=== PATIENT | female | born 1950 | race Caucasian/White ===

== ENCOUNTER 2019-10-23 15:13 | Outpatient (CLI) | payer MEDICARE, SELFPAY ==
--- NOTE | ~2019-10-23 | MM_ITS ---
EXAMINATION: MM screening stanley BI w dima HISTORY: Screening TECHNIQUE: Craniocaudal and mediolateral oblique 3-D tomosynthesis images were obtained and synthetic 2-D images were generated. CAD analysis was submitted and interpreted. COMPARISON: Comparison to multiple prior studies sequentially, with oldest reviewed study dated 06/2017. BREAST PARENCHYMAL COMPOSITION: There are scattered areas of fibroglandular density. FINDINGS: There is no evidence of suspicious mass, calcification, or architectural distortion to sugg est malignancy in either breast. There has been no suspicious interval change. IMPRESSION: 1. No mammographic evidence of malignancy. 2. Recommend routine screening mammography in one year. BI-RADS Category 1: Negative Reviewed, dictated and finalized at location A.
== END 2019-10-23 15:14 | disposition home or self-care (01) ==
PROVIDERS: PCP Family Medicine; Visit Provider Family Medicine
DX: Z12.31 Encounter for screening mammogram for malignant neoplasm of breast (principal)
CPT/HCPCS: 77063; 77067

== ENCOUNTER 2020-07-15 08:15 | Outpatient (CLI) | payer MEDICARE, SELFPAY ==
--- NOTE | ~2020-07-15 | US_ITS ---
EXAMINATION: US abdomen complete DATE: 07/15/2020 09:22 INDICATION: Elevated liver function tests TECHNIQUE: Multiple grayscale and Doppler ultrasound images of the abdomen were obtained. COMPARISON: None available FINDINGS: The head, body, and tail of the pancreas are normal. The liver demonstrates increased echog enicity, heterogenous echotexture, and decreased through transmission. No surface nodularity. Normal hepatopetal flow in the main portal vein. The gallbladder is normal with no abnormal wall thickening, pericholecystic fluid or stones. The normal common bile duct measures 3 mm. There was no sonographic Arredondo sign. The visualized portions of the aorta and inferior vena cava are normal. The right kidney measures 10.7 x 3.3 x 5.4 cm. The left kidney measures 9.3 x 5.0 x 4.2 cm. The kidne ys demonstrate normal parenchymal echogenicity. There is no hydronephrosis. The spleen is normal in a ppearance and measures 10.0 cm. IMPRESSION: 1. Diffuse hepatic steatosis. Reviewed, dictated and finalized at location B.
[2020-07-15 09:36] LABS: Alanine Aminotransferase 47 U/L (4-35); Cholesterol 92 mg/dL (0-200); Creatine Kinase 39 U/L (30-135); HDL Direct 37 mg/dL; Triglycerides 75 mg/dL (<150)
[2020-07-15 09:47] LABS: LDL Cholesterol Direct 42 mg/dL
[2020-07-15 10:28] LABS: Hepatitis B Surface Antigen Negative (Negative)
[2020-07-15 10:34] LABS: HAV RESULT Negative (Negative); Hepatitis B Core IgM Result Negative (Negative)
[2020-07-15 10:46] LABS: Hepatitis C Virus Antibody Negative (Negative)
[2020-07-20 12:51] LABS: GGT 25 U/L (3-65)
== END 2020-07-15 08:16 | disposition home or self-care (01) ==
LOC: ANHIMG 08:22
PROVIDERS: Nurse Practitioner Family; PCP Family Medicine; Visit Provider Physician Assistant Medical
DX: R74.01 Elevation of levels of liver transaminase levels (principal); E78.2 Mixed hyperlipidemia; K76.0 Fatty (change of) liver, not elsewhere classified
CPT/HCPCS: 36415; 76700; 80061; 80074; 82550; 82977; 84460

== ENCOUNTER 2020-08-24 08:18 | Outpatient (CLI) | payer MEDICARE, SELFPAY ==
[2020-08-24 08:49] LABS: Alanine Aminotransferase 30 U/L (4-35); Cholesterol 117 mg/dL (0-200); Creatine Kinase 33 U/L (30-135); HDL Direct 43 mg/dL; Triglycerides 71 mg/dL (<150)
[2020-08-24 09:00] LABS: LDL Cholesterol Direct 48 mg/dL
== END 2020-08-24 08:19 | disposition home or self-care (01) ==
LOC: ANHLAB 08:22
PROVIDERS: PCP Family Medicine; Visit Provider Nurse Practitioner Family
DX: E78.2 Mixed hyperlipidemia (principal)
CPT/HCPCS: 36415; 80061; 82550; 84460

== ENCOUNTER 2020-10-24 09:17 | Outpatient (CLI) | payer MEDICARE, SELFPAY ==
--- NOTE | ~2020-10-24 | MM_ITS ---
EXAMINATION: MM screening stanley BI w dima HISTORY: Screening mammogram TECHNIQUE: Craniocaudal and mediolateral oblique 3-D tomosynthesis images were obtained and synthetic 2-D images were generated. CAD analysis was submitted and interpreted. COMPARISON: 10/23/2019 bilateral digital screening mammogram 08/14/2018 bilateral diagnostic digital mammogram 07/28/2018, 06/2017, bilateral digital screening mammogram examination BREAST PARENCHYMAL COMPOSITION: There are scattered areas of fibroglandular density. FINDINGS: There is a biopsy marker on the right in the upper outer quadrant; history of prior benign right breast biopsy. Stable mild fibroglandular asymmetry. Scattered bilateral benign calcifications. There is no evidence of suspicious mass, calcification, or architectural distortion to suggest malignancy in either breast. There has been no suspicious interv al change. IMPRESSION: 1. No mammographic evidence of malignancy. 2. Recommend routine screening mammography in one year. BI-RADS Category 2: Benign finding(s). Reviewed, dictated and finalized at location A.
== END 2020-10-24 09:18 | disposition home or self-care (01) ==
LOC: ANHIMG 09:21
PROVIDERS: PCP Family Medicine; Visit Provider Family Medicine
DX: Z12.31 Encounter for screening mammogram for malignant neoplasm of breast (principal)
CPT/HCPCS: 77063; 77067

== ENCOUNTER 2021-09-19 08:24 | Outpatient (CLI) | payer MEDICARE, SELFPAY ==
[2021-09-19 09:03] LABS: Alanine Aminotransferase 39 U/L (6-35); Albumin Level 4.3 g/dL (3.5-5.1); Alkaline Phosphatase 91 U/L (38-126); Anion Gap 8 mmol/L (8-16); Aspartate Amino Transferase 34 U/L (14-36); Bilirubin,Total 0.5 mg/dL (0.2-1.3); Blood Urea Nitrogen 17 mg/dL (7-17); Calcium 9.4 mg/dL (8.4-10.2); Carbon Dioxide 26 mmol/L (22-30); Chloride 104 mmol/L (98-107); Cholesterol 183 mg/dL (0-200); Estimated Glomerular Filt Rate > 60; Glucose 138 mg/dL (65-110); HDL Direct 49 mg/dL; Sodium 138 mmol/L (137-145); Triglycerides 77 mg/dL (<150)
[2021-09-19 09:15] LABS: LDL Cholesterol Direct 101 mg/dL
[2021-09-19 09:16] LABS: Hematocrit 41.4 % (37.0-47.0); Hemoglobin 13.2 g/dL (12.0-15.0); Mean Corpuscular HGB Conc 31.9 g/dl (32-36); Mean Corpuscular Hemoglobin 28.8 pg (26-34); Mean Corpuscular Volume 90.2 fl (80-100); Platelet Count Result 295 k/mm3 (150-375); Red Blood Count 4.59 M/mm3 (4.2-5.4); Red Cell Distribution Width 13.7 % (11.5-14.5); White Blood Count 9.3 K/mm3 (4.5-10.0)
[2021-09-19 09:20] LABS: MALB Creatinine Ratio 7.7 mg/g (0-30); Microalbumin Urine Random 9.4 mg/L (0-16.7)
[2021-09-19 09:34] LABS: Thyroid Stimulating Hormone 0.758 uIU/mL (0.465-4.680)
== END 2021-09-19 08:25 | disposition home or self-care (01) ==
PROVIDERS: PCP Family Medicine; Visit Provider Nurse Practitioner Family
DX: E78.5 Hyperlipidemia, unspecified (principal); E11.9 Type 2 diabetes mellitus without complications; Z13.29 Encounter for screening for other suspected endocrine disorder; I10 Essential (primary) hypertension
CPT/HCPCS: 36415; 80053; 80061; 82043; 84443; 85027

== ENCOUNTER 2021-12-20 13:10 | Outpatient (CLI) | payer MEDICARE, SELFPAY ==
[2021-12-20 14:40] LABS: Free T4 Free Thyroxine 1.18 ng/mL (0.78-2.19)
[2021-12-20 14:51] LABS: Thyroid Stimulating Hormone 0.566 uIU/mL (0.465-4.680)
== END 2021-12-20 13:11 | disposition home or self-care (01) ==
LOC: ANHLAB 13:12
PROVIDERS: PCP Family Medicine; Visit Provider Nurse Practitioner Family
DX: L65.9 Nonscarring hair loss, unspecified (principal)
CPT/HCPCS: 36415; 84439; 84443

== ENCOUNTER 2022-02-06 14:34 | Outpatient (CLI) | payer MEDICARE, SELFPAY ==
--- NOTE | ~2022-02-06 | DEXA_ITS ---
Bone Density Report Name: ERIN MCCLOUD Age: 71 Sex: Female Ethnicity: White Date of : 1950 Indication: postmenopausal; screening for osteoporosis; height loss; hysterectomy; Referring Provider: DYLAN AGUILAR Study: Bone densitometry was performed. Exam Date: February 06, 2022 Accession number: [id number] Bone Density: Region BMD T-score Z-score Classification AP Spine(L1-L4) 0.900 -1.3 0.8 Osteopenia Femoral Neck (Left) 0.615 -2.1 -0.3 Osteopenia Total Hip (Left) 0.775 -1.4 0.1 Osteopenia Femoral Neck (Right) 0.667 -1.6 0.1 Osteopenia Total Hip (Right) 0.768 -1.4 0.1 Osteopenia Total Hip Mean 0.771 -1.4 0.1 Osteopenia World Health Organization criteria for BMD impression classify patients as: Normal (T-score at or above -1.0), Osteopenia (T-score between -1.0 and -2.5), or Osteoporosis (T-score at or below -2.5). 10-year Fracture Risk(1): Major Osteoporotic Fracture 12% Hip Fracture 2.3% Reported Risk Factors: [place] (), Neck BMD=0.615, BMI=24.4 (1) FRAX(R) Version 3.08. Fracture probability calculated for an untreated patient. Fracture probability may be lower if the patient has received treatment. Clinical Information Provided by Patient: Has the following medical conditions: Hysterectomy Patient maximum height was 63 Menopause Age: 56 Drinks caffeinated beverages Onset of menses at age 14 Number of children 1 Impression: The patient has low bone mass, based on the Left Femoral Neck T-score. The patient has an estimated ten-year risk of hip fracture of 2.3% and an estimated ten-year risk of major fracture of 12%, based on the WHO FRAX algorithm. Discussion: BONE DENSITY IS LOW AT ONE OR MORE SKELETAL SITES. This patient's lowest T-score is low at one or more skeletal sites. It meets the World Health Organization's (WHO) criteria for ?low bone mass? (T-score between -1.0 and -2.5). The patient's 10-year risk of fracture as calculated by FRAX is less than the threshold where pharmacological therapy is recommended by the National Osteoporosis Foundation (NOF). However, all treatment decisions require clinical judgment and consideration of individual patient factors, including patient preferences, comorbidities, previous drug use, risk factors not captured in the FRAX model (e.g., frailty, falls, vitamin D deficiency, increased bone turnover, interval significant decline in bone density) and possible under or overestimation of fracture risk by FRAX. The patient should follow a healthful lifestyle (good nutrition with adequate calcium and vitamin D, and appropriate weight-bearing exercise). Follow-Up: Consider repeating this study in 2 to 3 years to reassess this patient's status, or sooner if there is some new clinical indication. Reported by: Ave
--- NOTE | ~2022-02-06 | MM_ITS ---
EXAMINATION: MM screening stanley BI w dima HISTORY: Screening mammogram TECHNIQUE: Craniocaudal and mediolateral oblique 3-D tomosynthesis images were obtained and synthetic 2-D images were generated. CAD analysis was submitted and interpreted. COMPARISON: 10/18/2020, 10/19/2019 bilateral screening mammogram examinations BREAST PARENCHYMAL COMPOSITION: There are scattered areas of fibroglandular density. FINDINGS: Scattered bilateral benign calcifications. There is a biopsy marker on the right; history o f prior benign right breast biopsy. There is no evidence of suspicious mass, calcification, or luma ectural distortion to suggest malignancy in either breast. There has been no suspicious interval sow ge. IMPRESSION: 1. No mammographic evidence of malignancy. 2. Recommend routine screening mammography in one year. BI-RADS Category 2: Benign finding(s). Reviewed, dictated and finalized at location A. 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
== END 2022-02-06 14:35 | disposition home or self-care (01) ==
PROVIDERS: PCP Family Medicine; Visit Provider Nurse Practitioner Family
DX: Z12.31 Encounter for screening mammogram for malignant neoplasm of breast (principal); Z78.0 Asymptomatic menopausal state; M85.89 Other specified disorders of bone density and structure, multiple sites
CPT/HCPCS: 77063; 77067; 77080

== ENCOUNTER 2023-02-28 07:47 | Outpatient (CLI) | payer MEDICARE, SELFPAY ==
--- NOTE | ~2023-02-28 | MM_ITS ---
EXAMINATION: MM screening stanley BI w dima HISTORY: Screening mammogram TECHNIQUE: Craniocaudal and mediolateral oblique 3-D tomosynthesis images were obtained and synthetic 2-D images were generated. CAD analysis was submitted and interpreted. COMPARISON: 02/06/2022, 10/24/2020, 10/19/2019 bilateral screening mammogram examinations BREAST PARENCHYMAL COMPOSITION: There are scattered areas of fibroglandular density. FINDINGS: Biopsy marker is again noted on the right to prior benign right breast biopsy. Left pacemaker battery packs noted overlying the left axillary tail area. Scattered bilateral benign calcifications are again noted. There is no evidence of suspicious mass, c alcification, or architectural distortion to suggest malignancy in either breast. There has been no s uspicious interval change. IMPRESSION: 1. No mammographic evidence of malignancy. 2. Recommend routine screening mammography in one year. BI-RADS Category 2: Benign finding(s). Reviewed, dictated and finalized at location A. 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
== END 2023-02-28 07:48 | disposition home or self-care (01) ==
LOC: ANHIMG 07:51
PROVIDERS: PCP Family Medicine; Visit Provider Nurse Practitioner Family
DX: Z12.31 Encounter for screening mammogram for malignant neoplasm of breast (principal)
CPT/HCPCS: 77063; 77067

== ENCOUNTER 2023-03-30 13:50 | Outpatient (CLI) | payer MEDICARE, SELFPAY ==
[2023-03-30 14:15] LABS: Anion Gap 11 mmol/L (8-16); Blood Urea Nitrogen 17 mg/dL (7-17); Calcium 10.1 mg/dL (8.4-10.2); Carbon Dioxide 29 mmol/L (22-30); Chloride 101 mmol/L (98-107); Estimated Glomerular Filt Rate 55; Glucose 201 mg/dL (65-110); Potassium 3.6 mmol/L (3.4-5.0); Sodium 141 mmol/L (137-145)
== END 2023-03-30 13:51 | disposition home or self-care (01) ==
LOC: ANHLAB 13:52
PROVIDERS: PCP Family Medicine; Visit Provider Internal Medicine Cardiovascular Disease
DX: I10 Essential (primary) hypertension (principal)
CPT/HCPCS: 36415; 80048

== ENCOUNTER 2023-06-15 09:14 | Outpatient (CLI) | payer MEDICARE, SELFPAY ==
[2023-06-15 10:04] LABS: Basophils Percent Auto 0.6 % (0.2-1.2); Eosinophils Absolute Auto 0.1 K/mm3 (0-0.3); Hematocrit 41.4 % (37.0-47.0); Hemoglobin 13.5 g/dL (12.0-15.0); Immature Granulocyte Absolute 0.02 K/mm3 (0.00-0.031); Immature Granulocyte Percent A 0.3 % (0-0.5); Lymphocytes Absolute Auto 1.96 K/mm3 (0.9-3.2); Mean Corpuscular HGB Conc 32.6 g/dl (32-36); Mean Corpuscular Hemoglobin 28.6 pg (26-34); Mean Corpuscular Volume 87.7 fl (80-100); Mean Platelet Volume 10.1 fl (7.4-10.4); Monocytes Absolute Auto 0.5 K/mm3 (0.1-0.6); Monocytes Percent Auto 7.6 % (2.6-8.5); Neutrophils Absolute Auto 4.3 K/mm3 (1.3-6.7); Neutrophils Percent Auto 61.5 % (45.5-73.1); Platelet Count Result 293 k/mm3 (150-375); Red Blood Count 4.72 M/mm3 (4.2-5.4); Red Cell Distribution Width 13.6 % (11.5-14.5)
[2023-06-15 10:14] LABS: Alanine Aminotransferase 48 U/L (6-35); Albumin Level 4.5 g/dL (3.5-5.1); Alkaline Phosphatase 74 U/L (38-126); Anion Gap 5 mmol/L (8-16); Aspartate Amino Transferase 42 U/L (14-36); Bilirubin,Total 0.8 mg/dL (0.2-1.3); Blood Urea Nitrogen 11 mg/dL (7-17); Calcium 9.8 mg/dL (8.4-10.2); Carbon Dioxide 31 mmol/L (22-30); Chloride 101 mmol/L (98-107); Cholesterol 161 mg/dL (0-200); Estimated Glomerular Filt Rate > 60; Glucose 145 mg/dL (65-110); HDL Direct 47 mg/dL; Potassium 3.5 mmol/L (3.4-5.0); Sodium 137 mmol/L (137-145); Triglycerides 83 mg/dL (<150)
[2023-06-15 10:25] LABS: LDL Cholesterol Direct 100 mg/dL
[2023-06-15 10:44] LABS: Thyroid Stimulating Hormone 0.889 uIU/mL (0.465-4.680)
[2023-06-15 11:58] LABS: Hemoglobin A1C 7.7 % (<5.7)
[2023-06-15 12:43] LABS: Creatinine Urine 104.2 mg/dL
[2023-06-15 12:47] LABS: MALB Creatinine Ratio 7.1 mg/g (0-30); Microalbumin Urine Random 7.4 mg/L (0-16.7)
== END 2023-06-15 09:15 | disposition home or self-care (01) ==
LOC: ANHLAB 09:17
PROVIDERS: PCP Family Medicine; Visit Provider Family Medicine
DX: E78.2 Mixed hyperlipidemia (principal); I10 Essential (primary) hypertension; E11.65 Type 2 diabetes mellitus with hyperglycemia; R74.01 Elevation of levels of liver transaminase levels; Z13.220 Encounter for screening for lipoid disorders
CPT/HCPCS: 36415; 80048; 80061; 80076; 82043; 83036; 84443; 85025

== ENCOUNTER 2023-09-27 08:55 | Outpatient (CLI) | payer MEDICARE, SELFPAY ==
[2023-09-27 10:02] LABS: Alanine Aminotransferase 23 U/L (6-35); Albumin Level 4.5 g/dL (3.5-5.1); Alkaline Phosphatase 76 U/L (38-126); Aspartate Amino Transferase 26 U/L (14-36); Bilirubin,Total 0.7 mg/dL (0.2-1.3)
[2023-09-27 10:08] LABS: Hemoglobin A1C 6.9 % (<5.7)
== END 2023-09-27 08:56 | disposition home or self-care (01) ==
PROVIDERS: PCP Family Medicine; Visit Provider Family Medicine
DX: K76.0 Fatty (change of) liver, not elsewhere classified (principal); E11.65 Type 2 diabetes mellitus with hyperglycemia
CPT/HCPCS: 36415; 80076; 83036

== ENCOUNTER 2024-06-16 12:35 | Outpatient (CLI) | payer MEDICARE, SELFPAY ==
[2024-06-16 13:30] LABS: Basophils Percent Auto 0.6 % (0.2-1.2); Eosinophils Absolute Auto 0.1 K/mm3 (0-0.3); Eosinophils Percent Auto 2.2 % (0-4.4); Hemoglobin 14.3 g/dL (12.0-15.0); Immature Granulocyte Absolute 0.02 K/mm3 (0.00-0.031); Immature Granulocyte Percent A 0.3 % (0-0.5); Lymphocytes Absolute Auto 1.97 K/mm3 (0.9-3.2); Lymphocytes Percent Auto 30.9 % (18.3-44.2); Mean Corpuscular HGB Conc 32.5 g/dl (32-36); Mean Corpuscular Hemoglobin 28.8 pg (26-34); Mean Corpuscular Volume 88.5 fl (80-100); Mean Platelet Volume 10.5 fl (7.4-10.4); Monocytes Absolute Auto 0.5 K/mm3 (0.1-0.6); Monocytes Percent Auto 7.8 % (2.6-8.5); Neutrophils Absolute Auto 3.7 K/mm3 (1.3-6.7); Neutrophils Percent Auto 58.2 % (45.5-73.1); Platelet Count Result 265 k/mm3 (150-375); Red Blood Count 4.97 M/mm3 (4.2-5.4); White Blood Count 6.4 K/mm3 (4.5-10.0)
--- OUTSIDE RECORDS SUMMARY | 2024-06-16 13:52 | XMS_ITS | Clinical Summary ---
Author Organization [facility] Address [address] [place] [address] Care Team Providers Care Pilates Coordinator Name Role Phone Johny Duval MD Primary Care Provider [phone] Daisha Mac MD Unavailable [phone] [facility],non-owned Affiliates and Associated Physician Practices is amultiple site organization consisting of ambulatory clinics and hospital sitesin [place], [place], [place] and [place]. This disclosure is being madepursuant to the Care Everywhere program and may not contain all information available regarding this patient. Last updated 17.[facility] Allergies Active Allergy Reactions Criticality Noted Date Comments Rosuvastatin Myalgias 09/16/2020 Medications * Be aware that medications may not be up to date on this document. Alwaysverify current medications with the patient. Medication Sig Dispensed Refills Start Date End Date Status ezetimibe (ZETIA) 10 MG tablet Take 1 (one) tablet by mouth once daily 08/23/2020 Active Blood Glucose Monitoring Suppl (ACCU-CHEK ELEUTERIO PLUS) w/Device KIT USE 1 STRIP TO CHECK GLUCOSE TWICE DAILY 03/16/2020 Active indapamide (LOZOL) 2.5 MG tablet Take 2 (two) tablets by mouth once daily Active metFORMIN ER 24hr (GLUCOPHAGE XR) 500 MG tablet 4 (four) tablets at bedtime 06/07/2020 Active omeprazole (PRILOSEC) 20 MG capsule Take 1 (one) capsule by mouth as needed Active benazepril (Lotensin) 40 MG tablet Take 1 (one) tablet by mouth once daily Active dapagliflozin propanediol (Farxiga) 10 MG tablet Take 1 (one) tablet by mouth every morning Active vitamin D3 (Cholecalciferol) 25 MCG (1000 UNITS) tablet Take 1 (one) tablet by mouth once daily Active Active Problems Problem Noted Date Diagnosed Date Elevated liver function tests 09/16/2020 NAFLD (nonalcoholic fatty liver disease) 021 Overview (08/20/2023): 02/28/21 Fibroscan CAP 316, LSM 7.7 kPa 08/20/23 Fibroscan CAP 324, LSM 7.1 kPa Complete heart block 07/04/2018 Benign essential HTN 07/02/2018 Hypercholesteremia 07/02/2018 Type 2 diabetes mellitus wit hout complication, without long-term current use of insulin 07/02/2018 Pacemaker 11/26/2017 Overview (09/16/2020): Biotronik Dual Pacemaker. Dx; CHB, Syncope. DOI 11/21/2017. Biotronik remote monitoring, office pacer checks Q1 year. Immunizations Name Administration Dates Next Due Covid Moderna primary monova lent 12+ yr 0.5mL 02/07/2021,06/20/2020,05/18/2020 INFLUENZA VACCINE 12/30/2020,12/02/2019 Zoster Hzv Vacc Recombinant Inj Im 01/17/2020, Family History Medical History Relation Name Comments CAD (Coronary Artery Disease) Father Cancer - Lung Father Cancer - Uterine Mother CVA Sister 1 Relation Name Status Comments Father Mother Sister 1 Alive Sister 2 Alive Social History Tobacco Use Types Packs/Day Years Used Date Smoking Tobacco: Never Smokeless Tobacco: Never Alcohol Use Standard Drinks/Week Comments Never 0 (1 standard drink = 0.6 oz pur e alcohol) Sex and Gender Information Value Date Recorded Sex Assigned at Not on file Gender Identity Not on file Sexual Orientation Not on file Last Filed Vital Signs Vital Sign Reading Time Taken Comments Blood Pressure 133/78 08/20/2023 2:11 PM CDT Pulse 77 08/20/2023 2:11 PM CDT Temperature 37.1 C (98.7 F) 02/28/2021 9:38 AM NUCLEAR FUEL PROCESSING TECHNICIAN Respiratory Rate - - Oxygen Saturation 100% 08/20/2023 2:11 PM CDT Inhaled Oxygen Concentration - - Weight 55.7 kg (122 lb 12.8 oz) 08/20/2023 2:11 PM CDT Height 154.9 cm (5' 1 ) 08/20/2023 2:11 PM CDT Body Mass Index 23.2 08/20/2023 2:11 PM CDT Plan of Treatment Health Maintenance Due Date Last Done Comments BONE DENSITY TESTING 1950 COLOGUARD (AGES 45-75) - COL ON CA SCREENING 1950 COLON MONITORING 1950 COLONOSCOPY - COLON CA SCREENING 1950 CT COLONOGRAPHY - COLON CA SCREENING 1950 Colorectal Cancer Screening 1950 FIT - COLON CA SCREENING 1950 FLEX SIG - COLON CA SCREENING 1950 MAMMOGRAM 1950 HEPATITIS C SCREENING 05/13/1970 DTAP/TDAP/TD VACCINES (1 - Tdap) 1971 PNEUMOCOCCAL VACCINE 50+ (1 of 2 - PCV) 1971 DIABETES-STATIN 1992 Respiratory Syncytial Virus (RSV) Vaccine Pt: or over 60 yrs (1 - Risk 60-74 years 1-dose series) 2012 DIABETES RETINOPATHY SCREENING 09/16/2020 DIABETES-FOOT EXAM WITH MONOFILAMENT 09/16/2020 DIABETES-HGB A1C 09/16/2020 COVID-19 VACCINE (4 - 2023-2 5 season) 2023 02/07/2021, 06/20/2020, 05/18/2020 INFLUENZA VACCINE (#1) 2023 , 12/02/2019 DEPRESSION SCREENING 04/01/2024 DIABETES - URINE PROTEIN SCREENING 04/01/2024 MEDICARE AWV CALENDAR YEAR 2024 DIABETES-SERUM CREATININE 08/19/20242023, 09/19/2020 ZOSTER VACCINE Completed 01/17/2020, 10/17/2019 HEPATITIS B VACCINE Aged Out No longe r eligible based on patient's age to complete this topic HIB VACCINE Aged Out No longer eligi ble based on patient's age to complete this topic HPV VACCINE Aged Out No longer eligi ble based on patient's age to complete this topic MENINGOCOCCAL (Group B) VACCINE SHARED DECISION-MAKING Aged Out No longer eligible based on patient's age to complete this topic MENINGOCOCCAL GROUPS A/C/Y/W VACCINE Aged Out No longer eligible b ased on patient's age to complete this topic Goals Goal Patient Goal Type Associated Problems Recent Progress Patient-Stated? Author Medication Management General On track( 9:40 AM NUCLEAR FUEL PROCESSING TECHNICIAN) Leanna Henriquez, RN Note: Expected end date: ongoing Interventions: Take all medications as prescribed Let your doctor know right away about any changes in your medications Make sure to request a refill of your medication at least one week prior to your last dose Safety General On track( 9:40 AM NUCLEAR FUEL PROCESSING TECHNICIAN) Leanna Henriquez, ABIMBOLA Note: Expected end date: ongoing Interventions: Your nurse will assess your risk for falls/injury each visit Make sure appropriate safety devices are available and within reach Be aware of medications that could predispose you to falling Wear non-skid/rubber sole footwear Wear glasses/hearing aid Use some light at night in your room Procedures Procedure Name Priority Date/Time Associated Diagnosis Comments COMPREHENSIVE METABOLIC PANEL Routine 08/20/2023 1:51 PM CDT NAFLD (nonalcoholic fatty liver disease) from Last 3 Months or Most Recently Relevant to Health Maintenance Results * (ABNORMAL) COMPREHENSIVE METABOLIC PANEL (08/20/2023 1:51 PM CDT) BUN 22 7 - 26 mg/dL 08/20/2023 2:56 PM [facility] Creatinine 0.78 0.56 - 0.96 mg/dL 08/20/2023 2:56 PM [facility] Sodium 139 136 - 145 mmol/L 08/20/2023 2:56 PM [facility] Potassium 3.2(L) 3.5 - 4.5 mmol/L 08/20/2023 2:56 PM [facility] Chloride 101 98 - 107 mmol/L 08/20/2023 2:56 PM [facility] CO2 27 22 - 29 mmol/L 08/20/2023 2:[address] [facility] Glucose 100 70 - 115 mg/dL 08/20/2023 2:56 PM [facility] Calcium 10.3(H) 8.4 - 10.2 mg/dL 08/20/2023 2:56 PM [facility] Protein Total 7.6 6.0 - 8.3 g/dL 08/20/2023 2:56 PM [facility] Albumin 4.0 3.4 - 5.0 g/dL 08/20/2023 2:56 PM [facility] Bilirubin Total 0.5 0.2 - 1.2 mg/dL 08/20/2023 2:56 PM [facility] Alkaline Phosphatase 76 40 - 150 U/L 08/20/2023 2:56 PM [facility] ALT 33 5 - 55 U/L 08/20/2023 2:56 PM [facility] AST 31 5 - 34 U/L 08/20/2023 2:56 PM [facility] Anion Gap 11 6 - 16 08/20/2023 2:56 PM [facility] BUN/Creatinine Ratio 28(H) 7 - 23 08/20/2023 2:56 PM [facility] Osmolality Calculated 291 275 - 295 mOsm/kg 08/20/2023 2:56 PM [facility] Albumin/Globulin Ratio 1.1 1.1 - 2.3 08/20/2023 2:56 PM [facility] eGFR by CKD-EPI 81(L) >=90 mL/min/1.7 3 m2 08/20/2023 2:56 PM [facility] Blood BLOOD SPECIMEN / Unknown Lab Venipuncture / Unknown 08/20/2023 1:51 PM CDT 08/20/2023 2:24 PM [facility] [place] Janusz Urias MD LAB - CHEMISTRY TIGIST ELLISON [facility] Organization Address City/State/ZIP Co de Phone Number [facility] [address] [place] [address], [facility] [phone] from Last 3 Months or Most Recently Relevant to Health Maintenance Care Teams Pilates Coordinator Relationship Specialty Start Date End Date Johny Duval MD [address] [place] [address] PCP - General 08/23/20 Daisha Mac MD [address] [place] [address] Cardiovascular Disease 09/16/20
--- OUTSIDE RECORDS SUMMARY | 2024-06-16 13:52 | XMS_ITS | Referral Summary ---
Author Organization [facility] [address] Address [address] [place] [address] Care Team Providers Care Trash Hauler Name Role Phone Johny Duval MD Primary Care Provider [phone] Encounters Date Type Department Care Team Description 05/26/2024 Orders Only [facility] Cardiology [address] [place] [address] [place] [phone] Silvino Romero MD Complete heart block (HCC) (Primary Dx); Pacemaker 05/26/2024 8:00 AM MARINA DRY DOCK MANAGER Ancillary Procedure [facility] Cardiology [address] [place] [address] [place] [phone] Pacemaker [Z95.0] (Primary Dx); CHB (complete heart block) (HCC); SSS (sick sinus syndrome) (HCC) from Last 3 Months Allergies Active Allergy Reactions Criticality Noted Date Comments Rosuvastatin Muscle pain Medium 09/16/2020 Medications metFORMIN (GLUCOPHAGE) 500 mg tablet Take 4 tablets (2,000 mg total) by mouth nightly Active omeprazole (PriLOSEC) 20 mg capsule Take 1 capsule (20 mg total) by mouth daily as needed Active ezetimibe (ZETIA) 10 mg tablet Take 1 tablet (10 mg total) by mouth daily Active benazepriL (LOTENSIN) 40 mg tablet Take 1 tablet (40 mg total) by mouth daily 3 Active docosahexaenoic acid-epa 120-180 mg capsule Take by mouth Activ e indapamide (LOZOL) 2.5 mg tablet Take 2 tablets (5 mg total) by mouth daily 60 tablet 11 4 Active dapagliflozin propanediol (FARXIGA) 10 mg tablet Take 1 tablet (10 mg total) by mouth reactor kettle operator before breakfast Active cholecalciferol, vitamin D3, 1,000 unit tablet,chewable Take by mouth Active Lactobacillus rhamnosus GG (CULTURELLE) 10 billion cell capsule Take 1 capsule by mouth daily Active Active Problems Problem Noted Date Diagnosed Date Complete heart block 07/04/2018 Essential hypertension 07/02/2018 Hyperlipidemia associated with type 2 diabetes m ellitus 07/02/2018 Type 2 diabetes mellitus wit hout complication, without long-term current use of insulin 07/02/2018 Pacemaker 11/26/2017 Overview (11/26/2017): Biotronik Dual Pacemaker. Dx; CHB, Syncope. DOI 11/21/2017. [employer] Battles remote monitoring, office pacer checks Q1 year. Resolved Problems Problem Noted Date Diagnosed Date Resolved Date Hypertension associated with diabetes 10/05/2019 11/08/2021 Social History Tobacco Use Types Packs/Day Years Used Date Smoking Tobacco: Never Smokeless Tobacco: Never Tobacco Cessation:Counseling Given: Not Answered Comments Unknown Sex and Gender Information Value Date Recorded Sex Assigned at Not on file Legal Sex Female 12:52 PM CDT Gender Identity Female 10/02/2019 1:46 PM CDT Sexual Orientation Not on file Last Filed Vital Signs Vital Sign Reading Time Taken Comments Blood Pressure 146/76 11/25/2023 9:55 AM CDT Pulse 84 11/25/2023 9:55 AM CDT Temperature - - Respiratory Rate 16 11/25/2023 9:55 AM CDT Oxygen Saturation 97% 11/12/2022 10:10 AM CDT Inhaled Oxygen Concentration - - Weight 54.9 kg (121 lb) 11/25/2023 9:55 AM CDT Height 154.9 cm (5' 1 ) 11/25/2023 9:55 AM CDT Body Mass Index 22.86 11/25/2023 9:55 AM CDT Plan of Treatment Not on file Medical Devices Implanted Type Area Java Programmer Analyst Device Identifier Shelf Expiration Date Model / Serial / Lot Pacemaker-11/21 Implanted:10/31 (Quantity not on file) Pacemaker Chest [employer]ronik [employer] CHB, Syncope Procedures Procedure Name Priority Date/Time Associated Diagnosis Comments DEVICE CHECK - REMOTE Routine 05/26/2024 10:38 AM MARINA DRY DOCK MANAGER CHB (complete heart block) (HCC) SSS (sick sinus syndrome) (HCC) POCT LIPID PANEL Routine 11/25/2023 9:53 AM CDT Hyperlipidemia associated with type 2 diabetes mellitus (HCC) from Last 3 Months or Most Recently Relevant to Health Maintenance Results * DEVICE CHECK - REMOTE (05/26/2024 10:38 AM MARINA DRY DOCK MANAGER) Anatomical Region Laterality Modality Other Narrative 05/29/2024 9:32 AM MARINA DRY DOCK MANAGER Biotronik Dual Pacemaker. Dx; CHB, Syncope. DOI 11/21/2017. Biotronik remote monitoring, office pacer checks Q1 year. Routine DDD Pacemaker remote. Normal device function. Appropriate lead measurements noted. Battery function-45% remaining battery life to LITA. Presenting rhythm: AP-MECHANIC FOREMAN. AP-94%, MECHANIC FOREMAN-100%. No atrial high rate episodes noted. No ventricular high rate episodes noted. Meds; Indapamide, Zetia. See scanned report. Office pacemaker f/u 06/16/2025. Biotronik remote f/u 09/01/2024. Depeali Sheriff RN Daisha Mac MD [facility] PROCEDU RES Final Result * POCT lipid panel (11/25/2023 9:53 AM CDT) Cholesterol, POC 182 mg/dL HDL, POC 51 mg/dL Triglycerides, POC 94 mg/dL LDL Cholesterol POC 112 mg/dL Chol/HDL Ratio, POC 2.2 Non-HDL Cholesterol, POC 131 mg/dL Cholesterol Total, POC 182 mg/dL Capillary blood 11/25/2023 9 :53 AM CDT Courtney Qureshi WAREHOUSE RECEIVING SUPERVISOR POINT OF CARE TEST ORDERA BLES Final Result from Last 3 Months or Most Recently Relevant to Health Maintenance Insurance MEDICARE [employer] [facility] MEDICARE Address: [facility] [address] [place] [address] MEDICARE [employer] [facility] MEDICARE Address: [address] [address] [place] [phone] Care Teams Trash Hauler Relationship Specialty Start Date End Date Johny Duval MD PCP - General Family Medicine 10/20/20
--- OUTSIDE RECORDS SUMMARY | 2024-06-16 13:52 | XMS_ITS | Clinical Summary ---
Author Organization [facility] [place] [address] Address [address] [place] [address] Care Team Providers Care Glass Deposition Tender Name Role Phone Johny Duval MD Primary Care Provider [phone] Allergies Active Allergy Reactions Criticality Noted Date Comments Rosuvastatin Muscle pain Medium 09/16/2020 Medications metFORMIN (GLUCOPHAGE) 500 mg tablet Take 4 tablets (2,000 mg total) by mouth nightly Active omeprazole (PriLOSEC) 20 mg capsule Take 1 capsule (20 mg total) by mouth daily as needed Active ezetimibe (ZETIA) 10 mg tablet Take 1 tablet (10 mg total) by mouth daily 1 Active benazepriL (LOTENSIN) 40 mg tablet Take 1 tablet (40 mg total) by mouth daily 3 Active docosahexaenoic acid-epa 120-180 mg capsule Take by mouth Activ e indapamide (LOZOL) 2.5 mg tablet Take 2 tablets (5 mg total) by mouth daily 60 tablet 11 4 Active dapagliflozin propanediol (FARXIGA) 10 mg tablet Take 1 tablet (10 mg total) by mouth sheet metal assembler and riveter before breakfast Active cholecalciferol, vitamin D3, 1,000 [...] Date Hypertension associated with diabetes 10/05/2019 11/08/2021 Encounters Date Type Department Care Team Description 05/26/2024 8:00 AM MUD MIXER Ancillary Procedure [facility] Cardiology [address] [place] [phone] Pacemaker [Z95.0] (Primary Dx); CHB (complete heart block) (HCC); SSS (sick sinus syndrome) (HCC) 05/26/2024 Orders Only [facility] Cardiology [address] [place] [phone] Silvino Romero MD Complete heart block (HCC) (Primary Dx); Pacemaker from Last 3 Months Surgical History Surgery Date Site/Laterality Comments APPENDECTOMY 1965 HYSTERECTOMY May 2001 TUBAL LIGATION 1974 Medical History Medical History Date Comments GERD (gastroesophageal reflux disease) 2009 Diabetes mellitus (HCC) 2009 Heart disease November 20, 2017 Hypertension 2008 Family History Medical History Relation Name Comments Asthma Father Theodaore Antonioonig Cancer Father Theodaore Antonioonig Heart attack Father Theodaore Cesarg Hearing loss Mother Danyelle Matthew Hypertension Mother Danyelle Matthew Vision loss Mother Danyelle Matthew Stroke Sister Fatemeh Parker Diabetes Son Francisco Peres Relation Name Status Comments Father Theodaore Cesarg Mother Danyelle Matthew Sister Fatemeh Parker Son Francisco Peres Social History Tobacco Use Types Packs/Day Years Used Date Smoking Tobacco: Never Smokeless Tobacco: Never Tobacco Cessation:Counseling Given: Not Answered Comments Unknown Sex and Gender Information Value Date Recorded Sex Assigned at Not on file Legal Sex Female 12:52 PM CDT Gender Identity Female 10/02/2019 1:46 PM CDT Sexual Orientation Not on file Obstetrics History Last Filed Vital Signs Vital Sign Reading [...] 11/25/2023 9:55 AM CDT Plan of Treatment Health Maintenance Due Date Last Done Comments Albumin Creatinine Ratio, Urine 1952 Breast Cancer Screening-Mammogram 1952 Colon Cancer Screening-Colonoscopy 1952 Depression Screening 1952 Fall Risk Assessment 1952 Hemoglobin A1C 1952 Hepatitis C Screening 1952 Osteoporosis Screening-Bone Density Scan 1952 eGFR 1952 Dilated Eye Exam 1952 Foot Exam 1952 Hepatitis B Screening 1970 Well Visit 65+ 2017 Pneumococcal vaccine 65+ (3 of 3 - PCV20 or PCV21) 12/18/2022 12/18/2017, 04/01/2016, 12/23/2015 DTaP/Tdap/Td Vaccine (2 - Td or Tdap) 09/18/2023 09/17/2013, 05/29/2002 Covid-19 Vaccine (5 - 2023-2 5 season) 2023 02/02/2022, 02/07/2021, 06/20/2020, Additional history exists Influenza Vaccine (#1) 2023 , 12/02/2019, 12/18/2018, Additional history exists Lipid Panel 11/24/2024 11/25/2023, 10/30, 10/30/2021, Additional history exists Zoster Vaccine Completed 01/17/2020, 09/29, 12/05/2016 Medical Devices Implanted Type Area Marine Technician Device Identifier Shelf Expiration Date Model / Serial / Lot Pacemaker-11/21 Implanted:10/31 (Quantity not on file) Pacemaker Chest [employer] CHB, Syncope Procedures Procedure Name Priority Date/Time Associated Diagnosis Comments DEVICE CHECK - REMOTE Routine 05/26/2024 10:38 AM MUD MIXER CHB (complete heart block) (HCC) SSS (sick sinus syndrome) (HCC) POCT LIPID PANEL Routine 11/25/2023 9:53 AM CDT Hyperlipidemia associated with type 2 diabetes mellitus (HCC) from Last 3 Months or Most Recently Relevant to Health Maintenance Results * DEVICE CHECK - REMOTE (05/26/2024 10:38 AM MUD MIXER) Anatomical Region Laterality Modality Other Narrative 05/29/2024 9:32 AM MUD MIXER Bi[employer]ik Dual Pacemaker. Dx; CHB, Syncope. DOI 11/21/2017. [employer] remote monitoring, office pacer checks Q1 year. Routine DDD Pacemaker remote. Normal device function. Appropriate lead measurements noted. Battery function-45% remaining battery life to LITA. Presenting rhythm: AP-ENGINE BOSS. AP-94%, ENGINE BOSS-100%. No atrial high rate episodes noted. No ventricular high rate episodes noted. Meds; Indapamide, Zetia. See scanned report. Office pacemaker f/u 06/16/2025. [employer] remote f/u 09/01/2024. Deepali Sheriff, ABIMBOLA Daisha Mac MD CV CARDIAC SERVICES PROCEDU RES Final Result * POCT lipid panel (11/25/2023 9:53 AM CDT) Cholesterol, POC 182 mg/dL HDL, POC 51 mg/dL Triglycerides, POC 94 mg/dL LDL Cholesterol POC 112 mg/dL Chol/HDL Ratio, POC 2.2 Non-HDL Cholesterol, POC 131 mg/dL Cholesterol Total, POC 182 mg/dL Capillary blood 11/25/2023 9 :53 AM CDT Courtney Melanie Titus SHIPYARD PAINTER APPRENTICE POINT OF CARE TEST ORDERA BLES Final Result from Last 3 Months or Most Recently Relevant to Health Maintenance Insurance MEDICARE SOLUTIONS MEDICARE SOLUTIONS Care Teams Glass Deposition Tender Relationship Specialty Start Date End Date Johny Duval MD PCP - General Family Medicine 10/20/20
[2024-06-16 14:15] LABS: Alanine Aminotransferase 23 U/L (6-35); Albumin Level 4.7 g/dL (3.5-5.1); Alkaline Phosphatase 82 U/L (38-126); Anion Gap 13 mmol/L (4-12); Aspartate Amino Transferase 27 U/L (14-36); Bilirubin,Total 0.8 mg/dL (0.2-1.3); Blood Urea Nitrogen 23 mg/dL (7-17); Carbon Dioxide 28 mmol/L (22-30); Chloride 99 mmol/L (98-107); Cholesterol 197 mg/dL (0-200); Estimated Glomerular Filt Rate > 60; Glucose 106 mg/dL (65-110); HDL Direct 50 mg/dL; Potassium 3.6 mmol/L (3.4-5.0); Sodium 140 mmol/L (137-145); Triglycerides 99 mg/dL (<150)
[2024-06-16 14:20] LABS: Hemoglobin A1C 6.9 % (<5.7)
[2024-06-16 14:22] LABS: Vitamin D 25 Hydroxy 32.1 ng/mL
[2024-06-16 14:24] LABS: Creatinine Urine 76.5 mg/dL
[2024-06-16 14:26] LABS: LDL Cholesterol Direct 104 mg/dL
[2024-06-16 14:36] LABS: MALB Creatinine Ratio 8.9 mg/g (0-30); Microalbumin Urine Random 6.8 mg/L (0-16.7)
[2024-06-16 15:05] LABS: Thyroid Stimulating Hormone 0.605 uIU/mL (0.465-4.680)
== END 2024-06-16 12:36 | disposition home or self-care (01) ==
LOC: ANHLAB 12:37
PROVIDERS: PCP Family Medicine; Visit Provider Nurse Practitioner Adult Health
DX: E11.65 Type 2 diabetes mellitus with hyperglycemia (principal); E78.2 Mixed hyperlipidemia; E55.9 Vitamin D deficiency, unspecified; Z13.220 Encounter for screening for lipoid disorders; Z13.29 Encounter for screening for other suspected endocrine disorder
CPT/HCPCS: 36415; 80053; 80061; 82043; 82306; 83036; 84443; 85025

== ENCOUNTER 2024-06-25 10:42 | Outpatient (CLI) | payer MEDICARE, SELFPAY ==
[2024-06-25 11:48] LABS: Anion Gap 14 mmol/L (4-12); Blood Urea Nitrogen 23 mg/dL (7-17); Calcium 10.5 mg/dL (8.4-10.2); Carbon Dioxide 27 mmol/L (22-30); Chloride 99 mmol/L (98-107); Estimated Glomerular Filt Rate > 60; Glucose 142 mg/dL (65-110); Potassium 4.1 mmol/L (3.4-5.0); Sodium 140 mmol/L (137-145)
--- OUTSIDE RECORDS SUMMARY | 2024-06-25 11:51 | XMS_ITS | Clinical Summary ---
Author Organization [facility] [employer] Address [address] [place] [address] Care Team Providers Care Immunopathologist Name Role Phone Johny Duval MD Primary Care Provider [phone] Daisha Mac MD Unavailable Source Comments [facility] [employer],non-owned Affiliates and Associated Physician Practices is amultiple site organization consisting of ambulatory clinics and hospital sitesin [place], [place], [place] and [place]. This disclosure is being madepursuant to the Care Everywhere program and may not contain all information available regarding this patient. Last updated 17.[facility] [employer] Allergies Active Allergy Reactions Criticality Noted Date [...] 37.1 C (98.7 F) 02/28/2021 9:38 AM REACTOR TECHNICIAN Respiratory Rate - - Oxygen Saturation [...] Medication Management General On track( 9:40 AM REACTOR TECHNICIAN) Leanna Henriquez, RN Note: Expected end date: ongoing Interventions: Take all medications as prescribed Let your doctor know right away about any changes in your medications Make sure to request a refill of your medication at least one week prior to your last dose Safety General On track( 9:40 AM REACTOR TECHNICIAN) Leanna Henriquez, ABIMBOLA Note: Expected end [...] 7 - 26 mg/dL 08/20/2023 2:56 PM [facility] Creatinine 0.78 0.56 - 0.96 mg/dL 08/20/2023 2:56 PM [facility] Sodium 139 136 - 145 mmol/L 08/20/2023 2:56 PM [facility] Potassium 3.2(L) 3.5 - 4.5 mmol/L 08/20/2023 2:56 PM [facility] Chloride 101 98 - 107 mmol/L 08/20/2023 2:56 PM [facility] CO2 27 22 - 29 mmol/L 08/20/2023 2:56 PM [facility] Glucose 100 70 - 115 mg/dL 08/20/2023 2:56 PM [facility] Calcium 10.3(H) 8.4 - 10.2 mg/dL 08/20/2023 2:56 PM [facility] Protein Total 7.6 6.0 - 8.3 g/dL 08/20/2023 2:56 PM [facility] Albumin 4.0 3.4 - 5.0 g/dL 08/20/2023 2:56 PM [facility] Bilirubin Total 0.5 0.2 - 1.2 mg/dL 08/20/2023 2:56 PM [facility] Alkaline Phosphatase 76 40 - 150 U/L 08/20/2023 2:56 PM [facility] ALT 33 5 - 55 U/L 08/20/2023 2:56 PM [facility] AST 31 5 - 34 U/L 08/20/2023 2:56 PM [facility] Anion Gap 11 6 - 16 08/20/2023 2:56 PM [facility] BUN/Creatinine Ratio 28(H) 7 - 23 08/20/2023 2:56 PM [facility] Osmolality Calculated 291 275 - 295 mOsm/kg 08/20/2023 2:56 PM [facility] Albumin/Globulin Ratio 1.1 1.1 - 2.3 08/20/2023 2:56 PM [facility] eGFR by CKD-EPI 81(L) >=90 mL/min/1.7 3 m2 08/20/2023 2:56 PM [facility] Blood BLOOD SPECIMEN / Unknown Lab Venipuncture / Unknown 08/20/2023 1:51 PM CDT 08/20/2023 2:24 PM [facility] Janusz Urias MD LAB - CHEMISTRY TIGIST [facility] Organization Address City/State/ZIP Co de Phone Number [facility] [address] [place] [address], [facility] [phone] from Last 3 Months or Most Recently Relevant to Health Maintenance Care Teams Immunopathologist Relationship Specialty Start Date End Date Johny Duval MD [address] [place] [address] PCP - General 08/23/20 Daisha Mac MD [address] [place] [address] Cardiovascular Disease 09/16/20
--- OUTSIDE RECORDS SUMMARY | 2024-06-25 11:51 | XMS_ITS | Clinical Summary ---
Author Organization [facility] [address] Address [address] [place] [address] Care Team Providers Care Buggy Ladle Tender Name Role Phone Johny Duval MD Primary Care Provider [phone] Allergies Active Allergy Reactions Criticality Noted Date [...] 1 tablet (10 mg total) by mouth garbage person before breakfast Active cholecalciferol, vitamin D3, 1,000 [...] Department Care Team Description 05/26/2024 8:00 AM TV NEWS DIRECTOR Ancillary Procedure [facility] Cardiology [address] [place] [phone] Pacemaker [Z95.0] (Primary Dx); CHB (complete heart block) (HCC); SSS (sick sinus syndrome) (HCC) 05/26/2024 Orders Only [facility] Cardiology [address] [place] [phone] Silvino Romero MD Complete heart block (HCC) [...] 09/29, 12/05/2016 Medical Devices Implanted Type Area Kitchen Hand Device Identifier Shelf Expiration Date Model / Serial / Lot Pacemaker-11/21 Implanted:10/31 (Quantity not on file) Pacemaker Chest [employer] CHB, Syncope Procedures Procedure Name Priority Date/Time Associated Diagnosis Comments DEVICE CHECK - REMOTE Routine 05/26/2024 10:38 AM TV NEWS DIRECTOR CHB (complete heart block) (HCC) SSS (sick sinus syndrome) (HCC) POCT LIPID PANEL Routine 11/25/2023 9:53 AM CDT Hyperlipidemia associated with type 2 diabetes mellitus (HCC) from Last 3 Months or Most Recently Relevant to Health Maintenance Results * DEVICE CHECK - REMOTE (05/26/2024 10:38 AM TV NEWS DIRECTOR) Anatomical Region Laterality Modality Other Narrative 05/29/2024 9:32 AM TV NEWS DIRECTOR [employer] Dual Pacemaker. Dx; CHB, Syncope. DOI 11/21/2017. [employer] remote monitoring, office pacer checks Q1 year. Routine DDD Pacemaker remote. Normal device function. Appropriate lead measurements noted. Battery function-45% remaining battery life to LITA. Presenting rhythm: AP-MID LEVEL GAME DESIGNER. AP-94%, MID LEVEL GAME DESIGNER-100%. No atrial high rate episodes noted. No [...] 9 :53 AM CDT Courtney Melanie Titus ELECTROLYSIS INVESTIGATOR POINT OF CARE TEST ORDERA BLES Final Result from Last 3 Months or Most Recently Relevant to Health Maintenance Insurance [facility] MEDICARE ADVANTAGE UHC MEDICARE ADVANTAGE Care Teams Buggy Ladle Tender Relationship Specialty Start Date End Date Johny Duval MD PCP - General Family Medicine 10/20/20
--- OUTSIDE RECORDS SUMMARY | 2024-06-25 11:51 | XMS_ITS | Referral Summary ---
Author Organization [facility] [place] [address] Address [address] [place] [address] Care Team Providers Care Jet Piercer Operator Name Role Phone Johny Duval MD Primary Care Provider [phone] Encounters Date Type Department Care Team Description 05/26/2024 Orders Only [facility] Cardiology [address] [place] [address] [place] [phone] Silvino Romero MD Complete heart block (HCC) (Primary Dx); Pacemaker 05/26/2024 8:00 AM FACILITY MAINTENANCE SUPERVISOR Ancillary Procedure [facility] Cardiology [address] [place] [address] [place] [phone] Pacemaker [Z95.0] (Primary Dx); CHB (complete [...] 1 tablet (10 mg total) by mouth board setter before breakfast Active cholecalciferol, vitamin D3, 1,000 [...] Dual Pacemaker. Dx; CHB, Syncope. DOI 11/21/2017. [email or web address] remote monitoring, office pacer checks Q1 year. [...] on file Medical Devices Implanted Type Area Clamshell Operator Device Identifier Shelf Expiration Date Model / Serial / Lot Pacemaker-11/21 Implanted:10/31 (Quantity not on file) Pacemaker Chest [employer] CHB, Syncope Procedures Procedure Name Priority Date/Time Associated Diagnosis Comments DEVICE CHECK - REMOTE Routine 05/26/2024 10:38 AM FACILITY MAINTENANCE SUPERVISOR CHB (complete heart block) (HCC) SSS (sick sinus syndrome) (HCC) POCT LIPID PANEL Routine 11/25/2023 9:53 AM CDT Hyperlipidemia associated with type 2 diabetes mellitus (HCC) from Last 3 Months or Most Recently Relevant to Health Maintenance Results * DEVICE CHECK - REMOTE (05/26/2024 10:38 AM FACILITY MAINTENANCE SUPERVISOR) Anatomical Region Laterality Modality Other Narrative 05/29/2024 9:32 AM FACILITY MAINTENANCE SUPERVISOR [employer] Dual Pacemaker. Dx; CHB, Syncope. DOI 11/21/2017. [employer] remote monitoring, office pacer checks Q1 year. Routine DDD Pacemaker remote. Normal device function. Appropriate lead measurements noted. Battery function-45% remaining battery life to LITA. Presenting rhythm: AP-AIRWAYS CONTROL SPECIALIST. AP-94%, AIRWAYS CONTROL SPECIALIST-100%. No atrial high rate episodes noted. No ventricular high rate episodes noted. Meds; Indapamide, Zetia. See scanned report. Office pacemaker f/u 06/16/2025. [employer] remote f/u 09/01/2024. Deepali Sheriff RN Daisha Mac MD CV CARDIAC SERVICES PROCEDU RES Final Result * POCT lipid panel (11/25/2023 9:53 AM CDT) Cholesterol, POC 182 mg/dL HDL, POC 51 mg/dL Triglycerides, POC 94 mg/dL LDL Cholesterol POC 112 mg/dL Chol/HDL Ratio, POC 2.2 Non-HDL Cholesterol, POC 131 mg/dL Cholesterol Total, POC 182 mg/dL Capillary blood 11/25/2023 9 :53 AM CDT Courtney Qureshi INFORMATICS MANAGER POINT OF CARE TEST ORDERA BLES Final Result from Last 3 Months or Most Recently Relevant to Health Maintenance Insurance [facility] MEDICARE ADVANTAGE [place] [id number] [facility] MEDICARE ADVANTAGE [place] [id number] Care Teams Jet Piercer Operator Relationship Specialty Start Date End Date Johny Duval MD PCP - General Family Medicine 10/20/20
== END 2024-06-25 10:43 | disposition home or self-care (01) ==
LOC: ANHLAB 10:44
PROVIDERS: PCP Family Medicine; Visit Provider Nurse Practitioner Adult Health
DX: R79.9 Abnormal finding of blood chemistry, unspecified (principal)
CPT/HCPCS: 36415; 80048

== ENCOUNTER 2024-08-01 10:04 | Outpatient (CLI) | payer MEDICARE, SELFPAY ==
[2024-08-01 10:52] LABS: Anion Gap 10 mmol/L (4-12); Blood Urea Nitrogen 21 mg/dL (7-17); Calcium 9.8 mg/dL (8.4-10.2); Carbon Dioxide 28 mmol/L (22-30); Chloride 100 mmol/L (98-107); Estimated Glomerular Filt Rate > 60; Glucose 114 mg/dL (65-110); Potassium 3.5 mmol/L (3.4-5.0); Sodium 138 mmol/L (137-145)
--- OUTSIDE RECORDS SUMMARY | 2024-08-01 16:14 | XMS_ITS | Referral Summary ---
Author Organization [facility] [place] [address] Address [address] [place] [address] Care Team Providers Care Manager Nursing Home Name Role Phone Johny Duval MD Primary Care Provider [phone] Encounters Date Type Department Care Team Description 05/26/2024 Orders Only [facility] Cardiology [address] [place] [address] [place] [phone] Silvino Romero MD Complete heart block (HCC) (Primary Dx); Pacemaker 05/26/2024 8:00 AM PATHOLOGY LABORATORY DIRECTOR Ancillary Procedure [facility] Cardiology [address] [place] [address] [place] [phone] Pacemaker [Z95.0] (Primary Dx); CHB (complete [...] 1 tablet (10 mg total) by mouth crochet beader before breakfast Active cholecalciferol, vitamin D3, 1,000 [...] Dual Pacemaker. Dx; CHB, Syncope. DOI 11/21/2017. [employer] remote monitoring, office pacer checks Q1 year. [...] on file Medical Devices Implanted Type Area Shoe Cutter Device Identifier Shelf Expiration Date Model / Serial / Lot Pacemaker-11/21 Implanted:10/31 (Quantity not on file) Pacemaker Chest [employer] CHB, Syncope Procedures Procedure Name Priority Date/Time Associated Diagnosis Comments DEVICE CHECK - REMOTE Routine 05/26/2024 10:38 AM PATHOLOGY LABORATORY DIRECTOR CHB (complete heart block) (HCC) SSS (sick sinus syndrome) (HCC) POCT LIPID PANEL Routine 11/25/2023 9:53 AM CDT Hyperlipidemia associated with type 2 diabetes mellitus (HCC) from Last 3 Months or Most Recently Relevant to Health Maintenance Results * DEVICE CHECK - REMOTE (05/26/2024 10:38 AM PATHOLOGY LABORATORY DIRECTOR) Anatomical Region Laterality Modality Other Narrative 05/29/2024 9:32 AM PATHOLOGY LABORATORY DIRECTOR [employer] Dual Pacemaker. Dx; CHB, Syncope. DOI 11/21/2017. [employer] remote monitoring, office pacer checks Q1 year. Routine DDD Pacemaker remote. Normal device function. Appropriate lead measurements noted. Battery function-45% remaining battery life to LITA. Presenting rhythm: AP-CYTOPATHOLOGY TECHNOLOGIST. AP-94%, CYTOPATHOLOGY TECHNOLOGIST-100%. No atrial high rate episodes noted. No ventricular high rate episodes noted. Meds; Indapamide, Zetia. See scanned report. Office pacemaker f/u 06/16/2025. [employer] remote f/u 09/01/2024. Deepali Sheriff RN Daisha aMc MD CV CARDIAC SERVICES PROCEDU RES Final Result * POCT lipid panel (11/25/2023 9:53 AM CDT) Cholesterol, POC 182 mg/dL HDL, POC 51 mg/dL Triglycerides, POC 94 mg/dL LDL Cholesterol POC 112 mg/dL Chol/HDL Ratio, POC 2.2 Non-HDL Cholesterol, POC 131 mg/dL Cholesterol Total, POC 182 mg/dL Capillary blood 11/25/2023 9 :53 AM CDT Courtney Qureshi NP POINT OF CARE TEST ORDERA BLES Final Result from Last 3 Months or Most Recently Relevant to Health Maintenance Insurance [facility] MEDICARE ADVANTAGE [facility] MEDICARE ADVANTAGE Care Teams Manager Nursing Home Relationship Specialty Start Date End Date Johny Duval MD PCP - General Family Medicine 10/20/20
--- OUTSIDE RECORDS SUMMARY | 2024-08-01 16:15 | XMS_ITS | Clinical Summary ---
Author Organization [facility] [place] [address] Address [address] [place] [address] Care Team Providers Care High School Learning Support Teacher Name Role Phone Johny Duval MD Primary Care Provider Allergies Active Allergy Reactions Criticality Noted Date [...] 1 tablet (10 mg total) by mouth alliance director before breakfast Active cholecalciferol, vitamin D3, 1,000 [...] Department Care Team Description 05/26/2024 8:00 AM CERTIFIED MASTER LOCKSMITH Ancillary Procedure [facility] Cardiology [address] [place] [phone] Pacemaker [Z95.0] (Primary Dx); CHB (complete heart block) (HCC); SSS (sick sinus syndrome) (HCC) 05/26/2024 Orders Only [facility] Cardiology [address] [place] [phone] Silvino Rmoero MD Complete heart block (HCC) (Primary Dx); Pacemaker from Last 3 Months Surgical History Surgery Date Site/Laterality Comments APPENDECTOMY 1965 HYSTERECTOMY May 2001 TUBAL LIGATION 1974 Medical History Medical History Date Comments GERD (gastroesophageal reflux disease) 2009 Diabetes mellitus (HCC) 2009 Heart disease November 20, 2017 Hypertension 2008 Family History Medical History Relation Name Comments Asthma Father Theodaore Cesarg Cancer Father Theodaore Antonioonig Heart attack Father Theodaore Cesarg Hearing loss Mother Danyelle Matthew Hypertension Mother Danyelle Matthew Vision loss Mother Danyelle Matthew Stroke Sister Fatemeh Parker Diabetes Son Francisco Peres Relation Name Status Comments Father Theodaguillermo Guerrerog Mother Danyelle Matthew Sister Fatemeh Parker Son [...] 2023 02/02/2022, 02/07/2021, 06/20/2020, Additional history exists Lipid Panel 11/24/2024 11/25/2023, 10/30, 10/30/2021, Additional history exists Influenza Vaccine (Season Ended) 2024 12/30/2020, 12/02/2019, 12/18/2018, Additional history exists Zoster Vaccine Completed 01/17/2020, 09/29, 12/05/2016 Medical Devices Implanted Type Area Speech Correction Assistant Device Identifier Shelf Expiration Date Model / Serial / Lot Pacemaker-8/23 /2018 Implanted:10/31 (Quantity not on file) Pacemaker Chest [employer] CHB, Syncope Procedures Procedure Name Priority Date/Time Associated Diagnosis Comments DEVICE CHECK - REMOTE Routine 05/26/2024 10:38 AM CERTIFIED MASTER LOCKSMITH CHB (complete heart block) (HCC) SSS (sick sinus syndrome) (HCC) POCT LIPID PANEL Routine 11/25/2023 9:53 AM CDT Hyperlipidemia associated with type 2 diabetes mellitus (HCC) from Last 3 Months or Most Recently Relevant to Health Maintenance Results * DEVICE CHECK - REMOTE (05/26/2024 10:38 AM CERTIFIED MASTER LOCKSMITH) Anatomical Region Laterality Modality Other Narrative 05/29/2024 9:32 AM CERTIFIED MASTER LOCKSMITH Bi[employer]ik Dual Pacemaker. Dx; CHB, Syncope. DOI 11/21/2017. [employer] remote monitoring, office pacer checks Q1 year. Routine DDD Pacemaker remote. Normal device function. Appropriate lead measurements noted. Battery function-45% remaining battery life to LITA. Presenting rhythm: AP-CYTOGENETIC TECHNOLOGIST. AP-94%, CYTOGENETIC TECHNOLOGIST-100%. No atrial high rate episodes noted. [...] [facility] UHC MEDICARE ADVANTAGE Member Subscriber Plan / Payer (Ef fective 2020-Present) Name:Lu Peres Relation to Subscriber:Self Name:Lu Peres Payer ID:[id number] (NAIC) Type:[facility] MEDICARE Address: [place] [id number] Care Teams High School Learning Support Teacher Relationship Specialty Start Date End Date Johny Duval MD PCP - General Family Medicine 10/20/20
--- OUTSIDE RECORDS SUMMARY | 2024-08-01 16:15 | XMS_ITS | Clinical Summary ---
Author Organization [facility]rible Address [address] [place] [address] Care Team Providers Care Grounds Person Name Role Phone Johny Duval MD Primary Care Provider [phone] Daisha Mac MD Unavailable [phone] Source Comments [facility],non-owned Affiliates and Associated Physician Practices is amultiple site organization consisting of ambulatory clinics and hospital sitesin [place], [place], [place] and [place]. This disclosure is being madepursuant to the Care Everywhere program and may not contain all information available regarding this patient. Last updated 17.[facility] Allergies Active Allergy Reactions Criticality Noted Date Comments Rosuvastatin Myalgias 09/16/2020 Medications * Be aware that medications may not be up to date on this document. Alwaysverify current medications with the patient. ezetimibe (ZETIA) 10 MG tablet Take 1 [...] by mouth every morning Active vitamin D3 (Cholecalciferol ) 25 MCG (1000 UNITS) tablet Take 1 [...] monitoring, office pacer checks Q1 year. Immunizations Immunization Administration Dates Next Due Covid Moderna primary [...] drink = 0.6 oz pur e alcohol) Comments Unknown Sex and Gender Information Value Date Recorded Sex Assigned at Not on file Legal Sex Female 4:10 AM CDT Gender Identity Not on file Sexual Orientation Not on file Last Filed Vital Signs Vital Sign Reading Time Taken Comments Blood Pressure 133/78 08/20/2023 2:11 PM CDT Pulse 77 08/20/2023 2:11 PM CDT Temperature 37.1 C (98.7 F) 02/28/2021 9:38 AM STUMP SHOOTER Respiratory Rate - - Oxygen Saturation 100% [...] MONOFILAMENT 09/16/2020 DIABETES-HGB A1C 09/16/2020 COVID-19 VACCINE ( - 2023-2 5 season) 2023 02/07/2021, 06/20/2020, 05/18/2020 DEPRESSION SCREENING 04/01/2024 DIABETES - URINE PROTEIN SCREENING 04/01/2024 MEDICARE AWV CALENDAR YEAR 2024 DIABETES-SERUM CREATININE 08/19/20242023, 09/19/2020 INFLUENZA VACCINE (Season Ended) 2024 12/30/2020, 12/02/2019 ZOSTER VACCINE Completed 01/17/2020, 10/17/2019 HEPATITIS B [...] Medication Management General On track( 9:40 AM STUMP SHOOTER) No Leanna Voss, RN Note: Expected end date: ongoing Interventions: Take all medications as prescribed Let your doctor know right away about any changes in your medications Make sure to request a refill of your medication at least one week prior to your last dose Safety General On track( 9:40 AM STUMP SHOOTER) Leanna Henriquez, ABIMBOLA Note: Expected end date: [...] 7 - 26 mg/dL 08/20/2023 2:56 PM CDT [facility] Creatinine 0.78 0.56 - 0.96 mg/dL 08/20/2023 2:56 PM [facility] Sodium 139 136 - 145 mmol/L 08/20/2023 2:56 PM CDT [facility] Potassium 3.2(L) 3.5 - 4.5 mmol/L 08/20/2023 2:56 PM [facility] Chloride 101 98 - 107 mmol/L 08/20/2023 2:[address] [facility] CO2 27 22 - 29 mmol/L 08/20/2023 2:[address] [facility] Glucose 100 70 - 115 mg/dL 08/20/2023 2:[address] [facility] Calcium 10.3(H) 8.4 - 10.2 mg/dL 08/20/2023 2:[address] [facility] Protein Total 7.6 6.0 - 8.3 g/dL 08/20/2023 2:[address] [facility] Albumin 4.0 3.4 - 5.0 g/dL 08/20/2023 2:[address] [facility] Bilirubin Total 0.5 0.2 - 1.2 mg/dL 08/20/2023 2:[address] [facility] Alkaline Phosphatase 76 40 - 150 U/L 08/20/2023 2:[address] [facility] ALT 33 5 - 55 U/L 08/20/2023 2:[address] [facility] AST 31 5 - 34 U/L 08/20/2023 2:[address] [facility] Anion Gap 11 6 - 16 08/20/2023 2:[address] [facility] BUN/Creatinine Ratio 28(H) 7 - 23 08/20/2023 2:[address] [facility] Osmolality Calculated 291 275 - 295 mOsm/kg 08/20/2023 2:[address] [facility] Albumin/Globulin Ratio 1.1 1.1 - 2.3 08/20/2023 2:[address] [facility] eGFR by CKD-EPI 81(L) >=90 mL/min/1.7 3 m2 08/20/2023 2:[address] [facility] Blood BLOOD SPECIMEN / Unknown Lab Venipuncture / Unknown 08/20/2023 1:51 PM CDT 08/20/2023 2:24 PM [facility] Janusz Urias MD LAB - CHEMISTRY ORDERABLES Fin al Result [facility] [address] [place] [id number], [facility] [phone] from Last 3 Months or Most Recently Relevant to Health Maintenance Insurance [facility] MANAGED MEDICARE ADV [facility] MA[employer]ED MEDICARE ADV Care Teams Grounds Person Relationship Specialty Start Date End Date Johny Duval MD [address] [place] [address] PCP - General 08/23/20 Daisha Mac MD [address] [place] [address] Cardiovascular Disease 09/16/20
== END 2024-08-01 10:05 | disposition home or self-care (01) ==
LOC: ANHLAB 10:07
PROVIDERS: PCP Family Medicine; Visit Provider Nurse Practitioner Adult Health
DX: R79.9 Abnormal finding of blood chemistry, unspecified (principal)
CPT/HCPCS: 36415; 80048

== ENCOUNTER 2024-11-26 08:48 | Outpatient (CLI) | payer MEDICARE, SELFPAY ==
--- NOTE | ~2024-11-26 | MM_ITS ---
EXAMINATION: MM screening stanley BI w dima HISTORY: Screening TECHNIQUE: Craniocaudal and mediolateral oblique 3-D tomosynthesis images were obtained and synthetic 2-D images were generated. CAD analysis was submitted and interpreted. COMPARISON: Comparison to multiple prior studies sequentially, with oldest reviewed study dated 10/23/2019. BREAST PARENCHYMAL COMPOSITION: There are scattered areas of fibroglandular density. FINDINGS: There is no evidence of suspicious mass, calcification, or architectural distortion to suggest malignancy in either breast. Scattered benign-appearing calcifications are present. Pacemaker battery overlies and partially obscures the left axilla. Biopsy clip in the right breast. IMPRESSION: 1. No mammographic evidence of malignancy. 2. Recommend routine screening mammography in one year. BI-RADS Category 2: Benign finding(s). Reviewed, dictated and finalized at location B.
--- OUTSIDE RECORDS SUMMARY | 2024-11-26 08:52 | XMS_ITS | Clinical Summary ---
Author Organization [facility] Address [address] [place] [address] Care Team Providers Care Apiarist Name Role Phone Johny Duval MD Primary Care Provider Daisha Mac MD Unavailable [phone] Source Comments [facility],non-owned Affiliates and Associated Physician Practices is amultiple site organization consisting of ambulatory clinics and hospital sitesin [place], [place], [place] and [place]. This disclosure is being madepursuant to the Care Everywhere program and may not contain all information available regarding this patient. 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 Respiratory Rate - - Oxygen Saturation 100% 08/20/2023 2:11 PM CDT Inhaled Oxygen Concentration - - Weight 55.7 kg (122 lb 12.8 oz) 08/20/2023 2:11 PM CDT Height 154.9 cm (5' 1) 08/20/2023 2:11 PM CDT Body Mass Index [...] 2024 DIABETES-SERUM CREATININE 08/19/20242023, 09/19/2020 INFLUENZA VACCINE (#1) 2024 , 12/02/2019 ZOSTER VACCINE Completed 01/17/2020, 10/17/2019 HEPATITIS [...] Medication Management General On track( 9:40 AM SWEATBAND DECORATING MACHINE OPERATOR) No Leanna Voss, RN Note: Expected end date: ongoing Interventions: Take all medications as prescribed Let your doctor know right away about any changes in your medications Make sure to request a refill of your medication at least one week prior to your last dose Safety General On track( 9:40 AM SWEATBAND DECORATING MACHINE OPERATOR) Leanna Henriquez, ABIMBOLA Note: Expected end date: [...] - 26 mg/dL 08/20/2023 2:56 PM CDT [facility] Creatinine 0.78 0.56 - 0.96 mg/dL 08/20/2023 2:56 PM [facility] Sodium 139 136 - 145 mmol/L 08/20/2023 2:56 PM CDT [facility] Potassium 3.2(L) 3.5 - 4.5 mmol/L 08/20/2023 2:56 PM [facility] Chloride 101 98 - 107 mmol/L 08/20/2023 2:56 PM [facility] CO2 27 22 - 29 mmol/L 08/20/2023 2:56 PM [facility] Glucose 100 70 - 115 mg/dL 08/20/2023 2:56 PM [facility] Calcium 10.3(H) 8.4 - 10.2 mg/dL 08/20/2023 2:56 PM [facility] Protein Total 7.6 6.0 - 8.3 g/dL 08/20/2023 2:56 PM [facility] Albumin 4.0 3.4 - 5.0 g/dL 08/20/2023 2:56 PM [facility] Bilirubin Total 0.5 0.2 - 1.2 mg/dL 08/20/2023 2:56 PM [facility] Alkaline Phosphatase 76 40 - 150 U/L 08/20/2023 2:56 PM [facility] ALT 33 5 - 55 U/L 08/20/2023 2:56 PM [facility] AST 31 5 - 34 U/L 08/20/2023 2:56 PM [facility] Anion Gap 11 6 - 16 08/20/2023 2:56 PM [facility] BUN/Creatinine Ratio 28(H) 7 - 23 08/20/2023 2:56 PM [facility] Osmolality Calculated 291 275 - 295 mOsm/kg 08/20/2023 2:56 PM [facility] Albumin/Globulin Ratio 1.1 1.1 - 2.3 08/20/2023 2:56 PM [facility] eGFR by CKD-EPI 81(L) >=90 mL/min/1.7 3 m2 08/20/2023 2:56 PM [facility] Blood BLOOD SPECIMEN / Unknown Lab Venipuncture / Unknown 08/20/2023 1:51 PM CDT 08/20/2023 2:24 PM [facility] Janusz Urias MD LAB - CHEMISTRY ORDERABLES Fin al Result [facility] [address] [place] [id number], [facility] [phone] from Last 3 Months or Most Recently Relevant to Health Maintenance Insurance [facility] MANAGED MEDICARE ADV [facility] MANAGED MEDICARE ADV Care Teams Apiarist Relationship Specialty Start Date End Date Johny Duval MD [address] [place] [address] PCP - General 08/23/20 Daisha Mac MD [address] [place] [address] Cardiovascular Disease 09/16/20
--- OUTSIDE RECORDS SUMMARY | 2024-11-26 08:52 | XMS_ITS | Encounter Summary ---
Author Organization [facility] Healthcare Address [address] [place] [address] Care Team Providers Care Pastrycook'S Assistant Name Role Phone Isaias Steiner MD Primary Care Provider [phone] Zulema Atkins MD Primary Care Provider [phone] Johny Duval MD Primary Care Provider [phone] Encounter Details Date Type Department Care Team (Late st Contact Info) Description 11/21/2017 Orders Only [facility] [place] [place] Health Information Management [address] [place] [id number] Scanning, Provider Social History Tobacco Use Types Packs/Day Years Used Date Smoking Tobacco: Never Assessed Comments Unknown Sex and Gender Information Value Date Recorded Sex Assigned at Not on file Legal Sex Female 12:52 PM CDT Gender Identity Female 10/02/2019 1:46 PM CDT Sexual Orientation Not on file documented as of this encounter Plan of Treatment Not on file documented as of this encounter Procedures Procedure Name Priority Date/Time Associated Diagnosis Comments SCAN - RADIOLOGY/IMAGING 11/21/2017 CARDIOLOGY DOCUMENT SCAN 11/21/2017 documented in this encounter Results * SCAN - RADIOLOGY/IMAGING (11/21/2017) Anatomical Region Laterality Modality Other us Provider Scanning Edited Result - Final * Cardiology Document Scan (11/21/2017) Anatomical Region Laterality Modality Other us Provider Scanning [facility] PROCEDURES Final Result documented in this encounter Visit Diagnoses Not on filedocumented in this encounter Care Teams Pastrycook'S Assistant Relationship Specialty Start Date End Date Isaias Steiner MD [address] [place] [address] PCP - General Family Medicine 10/30/17 11/28/17 Zulema Atkins MD [address] [place] [address] PCP - General Family Practice 11/29/17 10/19/20 Johny Duval MD [address] [place] [address] PCP - General Family Medicine 10/20/20 documented as of this encounter
--- OUTSIDE RECORDS SUMMARY | 2024-11-26 08:52 | XMS_ITS | Encounter Summary ---
Author Organization [facility] Healthcare Address [address] [place] [address] Care Team Providers Care Fish Hatchery Man Name Role Phone Isaias Steiner MD Primary Care Provider [phone] Zulema Atkins MD Primary Care Provider [phone] Johny Duval MD Primary Care Provider [phone] Encounter Details Date Type Department Care Team (Late st Contact Info) Description 11/22/2017 Orders Only [facility] Health Information Management [address] [place] [id number] Scanning, Provider Social History Tobacco Use Types [...] Date/Time Associated Diagnosis Comments SCAN - RADIOLOGY/IMAGING 11/22/2017 documented in this encounter Results * SCAN - RADIOLOGY/IMAGING (11/22/2017) Anatomical Region Laterality Modality Other us Provider Scanning Final Result documented in this encounter Visit Diagnoses Not on filedocumented in this encounter Care Teams Fish Hatchery Man Relationship Specialty Start Date End Date Isaias Steiner MD [address] [place] [place] [address] PCP - General Family Medicine 10/30/17 11/28/17 Zulema Atkins MD [address] [place] [address] PCP - General Family Practice 11/29/17 10/19/20 Johny Duval MD [address] [place] [address] PCP - General Family Medicine 10/20/20 documented as of this encounter
--- OUTSIDE RECORDS SUMMARY | 2024-11-26 08:52 | XMS_ITS | Clinical Summary ---
Author Organization [facility] [address] Address [address] [place] [address] Care Team Providers Care Curtain Mender Name Role Phone Johny Duval MD Primary [...] 1 tablet (10 mg total) by mouth vice president compliance before breakfast Active cholecalciferol, vitamin D3, 1,000 [...] Encounters Date Type Department Care Team Description 09/01/2024 7:30 AM CDT Ancillary Procedure [facility] [address] [place] [id number] Pacemaker (Primary Dx); CHB (complete heart block) (HCC); SSS (sick sinus syndrome) (HCC) from Last 3 Months Surgical History Surgery Date Site/Laterality Comments APPENDECTOMY 1965 HYSTERECTOMY May 2001 TUBAL LIGATION 1974 Medical History Medical History Date Comments GERD (gastroesophageal reflux disease) 2009 Diabetes mellitus (HCC) 2009 Heart disease November 20, 2017 Hypertension 2008 Family History Medical History Relation Name Comments Asthma Father Theodaore Keonig Cancer Father Theodaore Antonioonig Heart attack Father Theodaore Cesarg Hearing loss Mother Danyelle Matthew Hypertension Mother Danyelle Matthew Vision loss Mother Danyelle Matthew Stroke Sister Fatemeh Parker Diabetes Son Francisco Peres Relation Name Status Comments Father Theodaore Keonig Mother Danyelle Matthew Sister Fatemeh Parker Son [...] 9:55 AM CDT Height 154.9 cm (5' 1) 11/25/2023 9:55 AM CDT Body Mass Index [...] 10/30, 10/30/2021, Additional history exists Influenza Vaccine (#1) 2024 , 12/02/2019, 12/18/2018, Additional history exists Zoster Vaccine Completed 01/17/2020, 09/29, 12/05/2016 Medical Devices Implanted Type Area Cake Inspector Device Identifier Shelf Expiration Date Model / Serial / Lot Pacemaker-11/21 Implanted:10/31 (Quantity not on file) Pacemaker Chest [employer] CHB, Syncope Procedures Procedure Name Priority Date/Time Associated Diagnosis Comments DEVICE CHECK - REMOTE Routine 09/03/2024 4:05 PM CDT CHB (complete heart block) (HCC) SSS (sick sinus syndrome) (HCC) POCT LIPID PANEL Routine 11/25/2023 9:53 AM CDT Hyperlipidemia associated with type 2 diabetes mellitus (HCC) from Last 3 Months or Most Recently Relevant to Health Maintenance Results * DEVICE CHECK - REMOTE (09/03/2024 4:05 PM CDT) Anatomical Region Laterality Modality Other Narrative 10/27/2024 11:56 AM CDT [employer] Dual Pacemaker. Dx; CHB, Syncope. DOI 11/21/2017. [employer] remote monitoring, office pacer checks Q1 year. Routine DDD CLS Pacemaker Remote. Transmission attached. Battery status: OK, 40% remaining battery life to LITA. Stable lead impedances, pacing and sensing thresholds. Presenting rhythm: AP/CLINICAL OUTCOMES MANAGER AP-96%, CLINICAL OUTCOMES MANAGER-100% No AT/AF episodes noted. No Ventricular high rate episodes detected. Medications: Benazepril 40 mg See scanned report. Office pacemaker follow up: 06/16/25 [employer] remote f/u 12/08/24. Oliverio Vargas RN Daisha Mac MD CV CARDIAC SERVICES [...] Most Recently Relevant to Health Maintenance Insurance [facility] MEDICARE [facility] MED[facility] Address: [address] [address] [place] [address] [facility] MEDIC[facility] MEDIC[facility] Address: [facility] [address] [phone] Care Teams Curtain Mender Relationship Specialty Start Date End Date Johny Duval MD PCP - General Family Medicine 10/20/20
== END 2024-11-26 08:49 | disposition home or self-care (01) ==
LOC: ANHFOHIMG 08:49
PROVIDERS: PCP Family Medicine; Visit Provider Nurse Practitioner Adult Health
DX: Z12.31 Encounter for screening mammogram for malignant neoplasm of breast (principal)
CPT/HCPCS: 77063; 77067

== ENCOUNTER 2024-11-26 09:25 | Outpatient (CLI) | payer MEDICARE, SELFPAY ==
--- NOTE | ~2024-11-26 | DEXA_ITS ---
Bone Density Report Name: ERIN MCCLOUD Age: 74 Sex: Female Ethnicity: White Date of : 1950 Indication: osteopenia; height loss; hysterectomy; Referring Provider: CARLOS RIZO Study: Bone densitometry was performed. Exam Date: November 26, 2024 Accession number: [id number] Bone Density: Region BMD T-score Z-score Classification AP Spine(L1-L4) 0.819 -2.1 0.2 Osteopenia Femoral Neck (Left) 0.640 -1.9 0.1 Osteopenia Total Hip (Left) 0.690 -2.1 -0.4 Osteopenia Femoral Neck (Right) 0.674 -1.6 0.4 Osteopenia Total Hip (Right) 0.688 -2.1 -0.4 Osteopenia Total Hip Mean 0.689 -2.1 -0.4 Osteopenia World Health Organization criteria for BMD impression classify patients as: Normal (T-score at or above -1.0), Osteopenia (T-score between -1.0 and -2.5), or Osteoporosis (T-score at or below -2.5). 10-year Fracture Risk(1): Major Osteoporotic Fracture 11% Hip Fracture 2.3% Reported Risk Factors: [place] (), Neck BMD=0.640, BMI=22.3 (1) FRAX(R) Version 3.08. Fracture probability calculated for an untreated patient. Fracture probability may be lower if the patient has received treatment. Previous Exams: -- Region Exam Age BMD T-score BMD Change BMD Change Date g/cm2 vs Baseline vs Previous -- AP Spine (L1-L4) 11/26/2024 74 0.819 -2.1 -9.0%* -9.0%* 02/06/2022 71 0.900 -1.3 Total Hip(Left) 11/26/2024 74 0.690 -2.1 -11.0%* -11.0%* 02/06/2022 71 0.775 -1.4 Total Hip(Right) 11/26/2024 74 0.688 -2.1 -10.4%* -10.4%* 02/06/2022 71 0.768 -1.4 -- *Denotes significance at 95% confidence level, LSC for AP Spine = 0.022 g/cm2, LSC for Total Hip = 0.027 g/cm2 Clinical Information Provided by Patient: Has used the following medications: Vitamin D Has the following medical conditions: Hysterectomy, Type 2 DM Patient maximum height was 63 Menopause Age: 56 No regular weight bearing exercise Drinks caffeinated beverages Onset of menses at age 14 Number of children 1 Impression: The patient has low bone mass, based on the Total Spine T-score. The patient has an estimated ten-year risk of hip fracture of 2.3% and an estimated ten-year risk of major fracture of 11%, based on the WHO FRAX algorithm. The BMD for the AP Spine (L1-L4) decreased, changing by -9.0% since the last DXA exam. The BMD for the Total Hip(Left) decreased, changing by -11.0% since the last DXA exam. The BMD for the Total Hip(Right) decreased, changing by -10.4% since the last DXA exam. Discussion: BONE DENSITY IS LOW AT ONE OR MORE SKELETAL SITES. This patient's lowest T-score is low at one or more skeletal sites. It meets the World Health Organization's (WHO) criteria for ?low bone mass? (T-score between -1.0 and -2.5). The patient's 10-year risk of fracture as calculated by FRAX is less than the threshold where pharmacological therapy is recommended by the National Osteoporosis Foundation (NOF). However, all treatment decisions require clinical judgment and consideration of individual patient factors, including patient preferences, comorbidities, previous drug use, risk factors not captured in the FRAX model (e.g., frailty, falls, vitamin D deficiency, increased bone turnover, interval significant decline in bone density) and possible under or overestimation of fracture risk by FRAX. The patient should follow a healthful lifestyle (good nutrition with adequate calcium and vitamin D, and appropriate weight-bearing exercise). Follow-Up: Consider repeating this study in 2 years to reassess this patient's status, or sooner if there is some new clinical indication. Reported by: VALERY on 11/26/2024 10:03:00 AM. Reviewed, dictated and finalized at location A.
== END 2024-11-26 09:26 | disposition home or self-care (01) ==
LOC: MICIMG 09:25
PROVIDERS: PCP Family Medicine; Visit Provider Nurse Practitioner Adult Health
DX: M85.851 Other specified disorders of bone density and structure, right thigh (principal); M85.852 Other specified disorders of bone density and structure, left thigh
CPT/HCPCS: 77080